=== PATIENT | female | born 1950 | race Caucasian/White ===

== ENCOUNTER 2016-10-14 17:11 | Inpatient (IN) | payer OTHER ==
[2016-10-14 17:38] VITALS: BMI 22.8
[2016-10-14 17:41] VITALS: RESP 20
--- NOTE | 2016-10-14 18:21 | CP.PCM.HP ---
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 Son and daughter in law at bedside. Patient initially presented with L sided weakness and L sided facial droop which have since resolved. Patient states she feels she has returned back to baseline. Patient able to answer questions well, gives her own history but easily gets confused. She is able to recall having a B.A. 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 However, patient was unable to recall she was transferred from one facility to another. She is easily redirected. Vitals are stable, no acute distress. Denies recent illness, fever, chills, chest pain, dyspnea, abdominal pain, dysuria, hematuria, hematochezia, melena, n/v/c/d. ROS: per HPI, 12 systems reviewed and negative PMD: Dr. Stephens PMH: HTN, DM, CVA 6 months ago, dementia (2 years), urinary incontinence PSH: denies FH: denies SH: denies tobacco, ETOH, IVDU Meds: as below Allergies: NKDA Vitals: reviewed and currently stable Exam: GEN: WDWN, alert, cooperative HEENT: NCAT, PERRL, EOMI NECK: supple, no JVD, no lymphadenopathy CARDIAC: +S1S2 RRR LUNG: CTAB No WRR ABD: SOFT NT ND BSX4 NO MASSES NO HSM EXT: +pedal pulses, equal strength NEURO: AAOx3 SKIN warm, dry PSYCH normal mood, normal affect Labs: pending Rads: CT head: no active disease or hemorrhage, no evidence CVA MRI Brain: extensive periventricular white matter signal abnormality, most likely secondary to chronic microvascular ischemic disease MRA Head: no evidence occlusion, definite significant stenosis or saccular aneurysm LE dopplers, neg for DVT Prior carotid doppler 20-29% proximal ICA stenosis Active Medications: Allergies Bar of Soap Adverse Reaction (Uncoded 10/14/16 17:34) RASH Height & Weight Height 5 ft 5 in Weight 137 lb Start Date/Time Active Medications 10/14/16 22:00 Insulin Detemir [Levemir] 10 unit SC HS 10/15/16 09:00 Aspirin [Ecotrin] 81 mg PO DAILY Atenolol/Chlorthalidone [Atenolol-Chlorthalidone 50-25] 1 tab PO DAILY Clopidogrel [Plavix] 75 mg PO DAILY Enoxaparin [Lovenox] 40 mg SC DAILY GlipiZIDE [Glucotrol] 10 mg PO BID Iron Polysaccharide [Ferrex-150] 150 mg PO DAILY Losartan [Cozaar] 50 mg PO DAILY MetFORMIN [glucOPHAGE] 1,000 mg PO BID Pantoprazole [Protonix EC Tab] 40 mg PO DAILY cefTRIAXone IV 1 gm in Dextros [Rocephin IV 1 gm Duplex] 1 gm IVPB DAILY 10/15/16 17:00 Atorvastatin [Lipitor] 10 mg PO DIN Assessment and Plan: 65 year old female PMH HTN, DM, CVA (L anterior temporal lobe) 6 months ago, dementia (2 years), urinary incontinence, admitted to TCU s/p TIA and UTI. Son and daughter in law at bedside. Patient initially presented with L sided weakness and L sided facial droop which have since resolved. Patient states she feels she has returned back to baseline. Patient able to answer questions well, gives her own history but easily gets confused. She is able to recall having a B.A. 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 However, patient was unable to recall she was transferred from one facility to another. She is easily redirected. Vitals are stable, no acute distress. CT head: no active disease or hemorrhage, no evidence CVA MRI Brain: extensive periventricular white matter signal abnormality, most likely secondary to chronic microvascular ischemic disease MRA Head: no evidence occlusion, definite significant stenosis or saccular aneurysm LE dopplers, neg for DVT Prior carotid doppler 20-29% proximal ICA stenosis TIA, hx CVA (L anterior temporal lobe) 6 months ago cont ASA, PLAVIX, STATIN PT/OT Physiatry consult UTI continue Ceftriaxone 2 more day follow CBC HTN cont Cozaar, Atenolol/Chlorthalidone DM accuchecks cont metformin, levemir, glipizide DEMENTIA no meds stable INCONTINENCE patient wears adult diapers at home VTE ppx lovenox Present on Admission - Present on Admission Any Indicators Present on Admission: No Past Patient History - Infectious Disease Hx of Infectious Diseases: None - Tetanus Immunizations Tetanus Immunization: Unknown - Past Medical History & Family History Past Medical History?: Yes - Past Social History Smoking Status: Never Smoked - CARDIAC Hx Hypertension: Yes - PULMONARY Hx Chronic Obstructive Pulmonary Disease (COPD): No Hx Pneumonia: No - NEUROLOGICAL Hx Dementia: Yes - RENAL Hx Renal Failure: No - ENDOCRINE/METABOLIC Hx Diabetes Mellitus Type 1: Yes - HEMATOLOGICAL/ONCOLOGICAL Hx Cancer: No - MUSCULOSKELETAL/RHEUMATOLOGICAL Hx Falls: No - GASTROINTESTINAL Hx Gastroesophageal Reflux: No - PSYCHIATRIC Hx Substance Use: No - SURGICAL HISTORY Hx Thyroidectomy: Yes - ANESTHESIA Hx Anesthesia: No Meds Allergies/Adverse Reactions: Allergies Allergy/AdvReac Type Severity Reaction Status Date / Time Bar of Soap AdvReac RASH Uncoded 10/14/16 17:34 Results - Vital Signs Recent Vital Signs: Last Vital Signs Temp 97.9 F 10/14/16 17:40 Pulse 64 10/14/16 17:40 Resp 20 10/14/16 17:40 BP 174/86 H 10/14/16 17:40 Pulse Ox 100 10/14/16 17:40
[2016-10-14] MEDS: Insulin Detemir 100 Units/ml Inj SC SCH (21:07)
[2016-10-15 07:42] LABS: MEAN CELL VOLUME 81.8 fl (81.0-99.0); MEAN CORPUSCULAR HEMOGLOBIN 26.8 pg (27.0-31.0); MEAN CORPUSCULAR HGB CONC 32.8 g/dL (33.0-37.0); RED CELL DISTRIBUTION WIDTH 14.7 % (11.5-14.5); WHITE BLOOD COUNT 8.8 K/uL (4.8-10.8)
[2016-10-15 07:56] LABS: BLOOD UREA NITROGEN 20 mg/dl (7-17); CALCIUM 10.1 mg/dL (8.4-10.2); CARBON DIOXIDE 25 mmol/L (22-30); CHLORIDE 99 mmol/L (98-107); GFR AFRICAN-AMERICAN > 60; GLUCOSE,RANDOM 202 mg/dL (65-105); POTASSIUM 4.1 MMOL/L (3.6-5.0); SODIUM 137 mmol/l (132-148)
[2016-10-15] MEDS: Enoxaparin 40 mg Syringe SC SCH (08:36)
[2016-10-15] MEDS: Pantoprazole 40 mg EC Tab PO SCH (08:37)
[2016-10-15 08:48] LABS: PARTIAL THROMBOPLASTIN TIME 37.8 Seconds (25.6-37.1)
[2016-10-15] MEDS ORDERED: cefTRIAXone IV 1 gm in Dextros 50 ML BAG IVPB SCH (09:00)
[2016-10-15] MEDS ORDERED: cefTRIAXone 1 gm/NS 100ML IVPB SCH (09:00)
[2016-10-15] MEDS ORDERED: Patient's Own Med (Atenolol/Chlorthalidone [Atenolol-Chlorthalidone 50-25] 1 TAB) PO SCH (09:00)
--- NOTE | 2016-10-15 14:33 | CP.PCM.PN ---
Subjective - Date & Time of Evaluation Date of Evaluation: 10/15/16 Time of Evaluation: 11:00 - Subjective Subjective: Hospitalist Progress Note (Patient was seen and examined at 11:00 AM 711-1 ) 65 year old female PMH HTN, DM, CVA (L anterior temporal lobe) 6 months ago, dementia (2 years), urinary incontinence, admitted to TCU 10/14/16 s/p being diagnosed with TIA and UTI at [facility] [place]. She initially presented to [facility] [place] with L sided weakness and L sided facial droop which have since resolved. Patient states she feels she has returned back to baseline. Patient able to answer questions well, gives her own history but easily gets confused. She is able to recall having a B.A. 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 head: no active disease or hemorrhage, no evidence CVA MRI Brain: extensive periventricular white matter signal abnormality, most likely secondary to chronic microvascular ischemic disease MRA Head: no evidence occlusion, definite significant stenosis or saccular aneurysm LE dopplers, neg for DVT Prior carotid doppler 20-29% proximal ICA stenosis Currently upon FULL ROS there is NO chest pain, NO palpitations, NO SOB/Cough/ Wheezing, NO dysphagia/odynophagia, NO abdminal pain, NO n/v/d/c, NO burning pain with urination, NO headaches, NO new changes in vision/eye pain, NO new changes in hearing/ear pain/tinnitus, NO paresthesias, NO edema, (+) Some lightheadedness when participating with PT HEENT: NCA, EOMI, PERRLA, NO pharyngeal erythema/exudate, NO thyromegaly, NO cervical/supraclavicular/submandibular lymphadenopathy, Oral Mucosa and Nasal Turbinates are moist Cardio: NS1 and NS2, NO M/R/G Resp: CTA B/L, NO R/R/W GI: BSx4, Soft, NT, ND, NO HSM, NO guarding/rebound tenderness Ext: Pulses are strong and equal, NO edema, Capillary Refill is 2 seconds Neuro: CN II through XII are grossly inteact, NO faical droop, 5/5 strength with flexion and extension of B/L UE and LE against my resistance, Mini Mental Status Exam score is 12/30 (could not provide month and season, could not provide information as to exactly where she was other than being in the hospital , could only subtract by 5 from 100 down to 90 and then could not anymore, and she could not recall 3 objects house/car/watch) Assessment and Plan: 1). TIA (History of CVA involving Left Anterior Tempora Lobe) ASA 81 mg PO 1x/day Atorvastatin 10 mg PO QHS Plavix 75 mg PO 1x/day Mini Mental Status Exam today 10/15/16 showed a score of 12/30 (please see details in Neuro Exam above) Consult Neurology Dr. Mane for further recommendations PT/OT Speech Therapy 2). Questionable UTI She was diagnosed with UTI at [facility] [place]. However, Urine Culture that was done there on 10/10/16 showed contamination Repeat Urine Culture was ordered and if negative then discontinue the Ceftriaxone 1 gm IV 1x/day 3). Hx HTN Atenolol 50 mg PO 1x/day Chlorthalidone 25 mg PO 1x/day Losartan 50 mg PO 1x/day 4). Hx DM 2 Glipizide 10 mg PO 2x/day Metformin 1,000 mg PO 2x/day Levemir 10 units SC QHS 5). Hx Dementia 6). Hx Urinary Incontinence Wears adult diapers at home as per records 7). Prophylaxis Lovenox 40 mg SC 1x/day for DVT Prophylaxis Protonix 40 mg PO 1x/day for GI Prophylaxis Florastor 250 mg PO 2x/day Ferrous Sulfate 325 mg PO 1x/day Objective - Vital Signs/Intake and Output Vital Signs (last 24 hours): Temp Pulse Resp BP Pulse Ox 97.5 F L 66 20 143/83 100 10/15/16 08:10 10/15/16 08:37 10/15/16 08:10 10/15/16 08:37 10/15/16 08:10 - Medications Medications: Current Medications Aspirin (Ecotrin) 81 mg PO DAILY [facility] Last Admin: 10/15/16 08:38 Dose: 81 mg Atenolol (Tenormin) 50 mg PO DAILY [facility] Last Admin: 10/15/16 08:36 Dose: 50 mg Atorvastatin Calcium (Lipitor) 10 mg PO DIN KUNAL Chlorthalidone (Hygroton) 25 mg PO DAILY [facility] Last Admin: 10/15/16 08:36 Dose: 25 mg Clopidogrel Bisulfate (Plavix) 75 mg PO DAILY [facility] Last Admin: 10/15/16 08:38 Dose: 75 mg Enoxaparin Sodium (Lovenox) 40 mg SC DAILY [facility] PRN Reason: Protocol Last Admin: 10/15/16 08:36 Dose: 40 mg Ferrous Sulfate (Feosol) 325 mg PO DAILY [facility] Last Admin: 10/15/16 08:38 Dose: 325 mg Glipizide (Glucotrol) 10 mg PO BID [facility] Last Admin: 10/15/16 08:38 Dose: 10 mg Ceftriaxone Sodium 1 gm/ (Sodium Chloride) 100 mls @ 100 mls/hr IVPB DAILY [facility] Stop: 10/16/16 09:59 Last Admin: 10/15/16 12:11 Dose: 100 mls/hr Insulin Detemir (Levemir) 10 units SC [facility] Last Admin: 10/14/16 21:07 Dose: 10 units Losartan Potassium (Cozaar) 50 mg PO DAILY [facility] Last Admin: 10/15/16 08:37 Dose: 50 mg Metformin HCl (Glucophage) 1,000 mg PO BID [facility] Last Admin: 10/15/16 08:36 Dose: 1,000 mg Pantoprazole Sodium (Protonix Ec Tab) 40 mg PO DAILY [facility] Last Admin: 10/15/16 08:37 Dose: 40 mg - Labs Labs: 10/15/16 07:26 10/15/16 07:26 PT 12.2 Seconds (9.8-13.1) 10/15/16 07:26 INR 1.1 (0.9-1.2) 10/15/16 07:26 APTT 37.8 Seconds (25.6-37.1) H 10/15/16 07:26
[2016-10-15] MEDS: Insulin Regular 100 units/ml SC SCH ×2 (16:48→21:17)
[2016-10-15] MEDS: Saccharomyces Boulardi 250 mg Cap PO SCH (16:51)
--- NOTE | 2016-10-15 19:07 | CP.PCM.CON ---
History of Present Illness - History of Present Illness History of Present Illness: Mrs. Muro is a 65-year-old woman with a past medical history significant for a preivous left anterior temporal lobe infarct that occured two years ago, likely vascular dementia, HTN, DM, urinary incontinence. She is currently admitted for an episode described as a TIA (resolved left facial droop and left side weakness), and had a UTI. The patient seems to be more acutely confused than her baseline. Neurology was consulted to assist with the management and care. Review of Systems - Review of Systems All systems: reviewed and no additional remarkable complaints except Past Patient History - Infectious Disease Hx of Infectious Diseases: None - Tetanus Immunizations Tetanus Immunization: Unknown - Past Medical History & Family History Past Medical History?: Yes - Past Social History Smoking Status: Never Smoked - CARDIAC Hx Hypertension: Yes - PULMONARY Hx Chronic Obstructive Pulmonary Disease (COPD): No Hx Pneumonia: No - NEUROLOGICAL HX Cerebrovascular Accident: Yes - RENAL Hx Renal Failure: No - ENDOCRINE/METABOLIC Hx Diabetes Mellitus Type 2: Yes - HEMATOLOGICAL/ONCOLOGICAL Hx Cancer: No - MUSCULOSKELETAL/RHEUMATOLOGICAL Hx Falls: No - GASTROINTESTINAL Hx Gastroesophageal Reflux: No - PSYCHIATRIC Hx Substance Use: No - SURGICAL HISTORY Hx Thyroidectomy: Yes - ANESTHESIA Hx Anesthesia: No Meds Allergies/Adverse Reactions: Allergies Allergy/AdvReac Type Severity Reaction Status Date / Time Bar of Soap AdvReac RASH Uncoded 10/14/16 17:34 - Medications Medications: Current Medications Aspirin (Ecotrin) 81 mg PO DAILY [facility] Last Admin: 10/15/16 08:38 Dose: 81 mg Atenolol (Tenormin) 50 mg PO DAILY [facility] Last Admin: 10/15/16 08:36 Dose: 50 mg Atorvastatin Calcium (Lipitor) 10 mg PO DIN [facility] Last Admin: 10/15/16 16:44 Dose: 10 mg Chlorthalidone (Hygroton) 25 mg PO DAILY [facility] Last Admin: 10/15/16 08:36 Dose: 25 mg Clopidogrel Bisulfate (Plavix) 75 mg PO DAILY [facility] Last Admin: 10/15/16 08:38 Dose: 75 mg Donepezil HCl (Aricept) 5 mg PO [facility] Enoxaparin Sodium (Lovenox) 40 mg SC DAILY [facility] PRN Reason: Protocol Last Admin: 10/15/16 08:36 Dose: 40 mg Ferrous Sulfate (Feosol) 325 mg PO DAILY [facility] Last Admin: 10/15/16 08:38 Dose: 325 mg Glipizide (Glucotrol) 10 mg PO BID [facility] Last Admin: 10/15/16 16:44 Dose: 10 mg Ceftriaxone Sodium 1 gm/ (Sodium Chloride) 100 mls @ 100 mls/hr IVPB DAILY [facility] Stop: 10/16/16 09:59 Last Admin: 10/15/16 12:11 Dose: 100 mls/hr Insulin Detemir (Levemir) 10 units SC HS [facility] Last Admin: 10/14/16 21:07 Dose: 10 units Insulin Human Regular (Humulin R) 0 units SC ACHS [facility] Last Admin: 10/15/16 16:48 Dose: Not Given Losartan Potassium (Cozaar) 50 mg PO DAILY [facility] Last Admin: 10/15/16 08:37 Dose: 50 mg Memantine (Namenda) 5 mg PO DAILY [facility] Last Admin: 10/15/16 18:56 Dose: 5 mg Metformin HCl (Glucophage) 1,000 mg PO BID [facility] Last Admin: 10/15/16 16:44 Dose: 1,000 mg Pantoprazole Sodium (Protonix Ec Tab) 40 mg PO DAILY [facility] Last Admin: 10/15/16 08:37 Dose: 40 mg Saccharomyces Boulardii (Florastor) 250 mg PO BID [facility] Last Admin: 10/15/16 16:51 Dose: 250 mg Physical Exam - Constitutional Appears: Well - Head Exam Head Exam: ATRAUMATIC, NORMAL INSPECTION, NORMOCEPHALIC - Eye Exam Eye Exam: EOMI, Normal appearance, PERRL - ENT Exam ENT Exam: Mucous Membranes Moist, Normal Exam - Neck Exam Neck exam: Positive for: Normal Inspection - Respiratory Exam Respiratory Exam: Accessory Muscle Use - Cardiovascular Exam Cardiovascular Exam: REGULAR RHYTHM, +S1, +S2 - GI/Abdominal Exam GI & Abdominal Exam: Normal Bowel Sounds, Soft. absent: Tenderness - Extremities Exam Extremities exam: Positive for: normal inspection - Back Exam Back exam: NORMAL INSPECTION - Neurological Exam Neurological exam: CN II-XII Intact Additional comments: Awake, alert. Oriented to place and year, but does not know her age. She recalls 1/3 words. Can spell WORLD frontward, but not backward, could not complete subtraction task. Scored 13 on mini-mental exam. CN 2-12 were intact, strength on right side was slightly weaker than left, reflexes were brisk on the right with upgoing plantar response. Sensation was intact to LT/P/T throughout. Gait was wide-based and shuffling. Romberg was normal. Results - Vital Signs Recent Vital Signs: Last Vital Signs Temp 97.5 F L 10/15/16 16:38 Pulse 69 10/15/16 16:38 Resp 20 10/15/16 16:38 BP 138/95 H 10/15/16 16:38 Pulse Ox 100 10/15/16 16:38 - Labs Result Diagrams: 10/15/16 07:26 10/15/16 07:26 Labs: Laboratory Results - last 24 hr 10/14/16 10/15/16 10/15/16 20:04 06:04 07:26 WBC 8.8 RBC 4.65 Hgb 12.5 Hct 38.0 MCV 81.8 MCH 26.8 L MCHC 32.8 L RDW 14.7 H Plt Count 253 PT INR APTT Sodium Potassium Chloride Carbon Dioxide Anion Gap BUN Creatinine Est GFR ( Amer) Est GFR (Non-Af Amer) POC Glucose (mg/dL) 245 H 207 H Random Glucose Calcium Troponin I 10/15/16 10/15/16 10/15/16 07:26 07:26 10:44 WBC RBC Hgb Hct MCV MCH MCHC RDW Plt Count PT 12.2 INR 1.1 APTT 37.8 H Sodium 137 Potassium 4.1 Chloride 99 Carbon Dioxide 25 Anion Gap 17 BUN 20 H Creatinine 0.7 Est GFR ( Amer) > 60 Est GFR (Non-Af Amer) > 60 POC Glucose (mg/dL) 372 H Random Glucose 202 H Calcium 10.1 Troponin I 10/15/16 10/15/16 13:25 16:48 WBC RBC Hgb Hct MCV MCH MCHC RDW Plt Count PT INR APTT Sodium Potassium Chloride Carbon Dioxide Anion Gap BUN Creatinine Est GFR ( Amer) Est GFR (Non-Af Amer) POC Glucose (mg/dL) 126 H Random Glucose Calcium Troponin I < 0.0120 Assessment & Plan (1) Altered mental status Assessment and Plan: This could be due to acute worsening of baseline dementia as a result of toxic- encephalopathy in the presence of a UTI. The patient has a history of vascular dementia and is not on any medications for it. I recommend continuing aspirin, plavix, losartan and managing DM, HTN. Furthermore, I recommend adding Aricept at 5 mg QHS and Namenda at 5 mg daily. She will need outpatient neurology follow up. Thank you for this consultation. Status: Acute
[2016-10-15] MEDS: Insulin Detemir 100 Units/ml Inj SC SCH (21:23)
[2016-10-16] MEDS: Insulin Regular 100 units/ml SC SCH ×4 (06:39→21:07)
[2016-10-16] MEDS: Saccharomyces Boulardi 250 mg Cap PO SCH ×2 (08:39→17:22)
[2016-10-16] MEDS: Pantoprazole 40 mg EC Tab PO SCH (08:40)
[2016-10-16] MEDS: Enoxaparin 40 mg Syringe SC SCH (08:40)
--- NOTE | 2016-10-16 14:29 | CARD ---
APPROVED REPORT EKG Measurement Heart [id number] <Conclusion> Normal sinus rhythm Left ventricular hypertrophy with repolarization abnormality Inferior infarct, age undetermined Abnormal ECG
[2016-10-16] MEDS ORDERED: cefTRIAXone 1 gm/NS 100ML IVPB SCH (17:00)
[2016-10-16] MEDS: Insulin Detemir 100 Units/ml Inj SC SCH (21:07)
[2016-10-17] MEDS: Insulin Regular 100 units/ml SC SCH ×4 (06:47→21:24)
[2016-10-17] MEDS: Saccharomyces Boulardi 250 mg Cap PO SCH ×2 (09:23→17:03)
[2016-10-17] MEDS: Pantoprazole 40 mg EC Tab PO SCH (09:26)
[2016-10-17] MEDS: Enoxaparin 40 mg Syringe SC SCH (09:27)
--- NOTE | 2016-10-17 11:28 | CP.PCM.PCO ---
Physician Communication Note - Physician Communication Note Physician Communication Note: Please see above
[2016-10-17] MEDS ORDERED: Sodium Chloride 0.9% 100 ML ONE (13:20)
[2016-10-17] MEDS ORDERED: Iohexol 300 100 ML IJ ONE (13:20)
--- NOTE | 2016-10-17 14:47 | CT ---
PROCEDURE: CT Abdomen and Pelvis with contrast HISTORY: RLQ PAIN N V COMPARISON: None. TECHNIQUE: Contrast dose: 90 cc Omnipaque 300 Radiation dose: Total exam DLP = 1029.56 mGy-cm. This CT exam was performed using one or more of the following dose reduction techniques: Automated exposure control, adjustment of the mA and/or kV according to patient size, and/or use of iterative reconstruction technique. FINDINGS: LOWER THORAX: Subsegmental/dependent atelectasis. Small hiatal hernia. No LIVER: Hepatic steatosis. 1.7 cm simple cyst posterior segment right hepatic lobe. She. No intrahepatic bile duct dilatation or perihepatic ascites. GALLBLADDER AND BILE DUCTS: Unremarkable. PANCREAS: Unremarkable. No gross lesion or ductal dilatation. SPLEEN: Unremarkable. ADRENALS: Unremarkable. No mass. KIDNEYS AND URETERS: Unremarkable. No hydronephrosis. No solid mass. VASCULATURE: Unremarkable. No aortic aneurysm. BOWEL: Unremarkable. No obstruction. No gross mural thickening. Diverticulosis without an acute inflammatory component or other associated pathologic process. APPENDIX: Normal appendix. PERITONEUM: Unremarkable. No free fluid. No free air. LYMPH NODES: Unremarkable. No enlarged lymph nodes. BLADDER: Unremarkable. REPRODUCTIVE: Unremarkable. BONES: No acute fracture. OTHER FINDINGS: None. IMPRESSION: No significant or acute findings to account for/ related to the clinical presentation. Additional benign and/or incidental findings described above.
[2016-10-17 15:12] LABS: HEMATOCRIT 38.5 % (34.0-47.0); LYMPH # 1.2 K/uL (1.0-4.3); LYMPH % 7.5 % (20.0-40.0); MEAN CELL VOLUME 81.8 fl (81.0-99.0); MEAN CORPUSCULAR HEMOGLOBIN 26.5 pg (27.0-31.0); MEAN CORPUSCULAR HGB CONC 32.4 g/dL (33.0-37.0); MEAN PLATELET VOLUME 9.1 fl (7.2-11.7); MONO # 0.4 K/uL (0.0-0.8); MONO % 2.6 % (0.0-10.0); NEUT # 14.5 K/uL (1.8-7.0); NEUT % 89.9 % (50.0-75.0); NRBC % 0.1 % (0.0-0.0); PLATELET COUNT 243 K/uL (130-400); RED CELL DISTRIBUTION WIDTH 14.7 % (11.5-14.5); WHITE BLOOD COUNT 16.2 K/uL (4.8-10.8)
[2016-10-17 15:22] LABS: ALB/GLOB RATIO 1.1 (1.0-2.1); ALKALINE PHOSPHATASE 62 U/L (38-126); ALT/SGPT 19 U/L (9-52); AST/SGOT 16 U/L (14-36); BILIRUBIN,TOTAL 1.1 mg/dl (0.2-1.3); BLOOD UREA NITROGEN 28 mg/dl (7-17); CARBON DIOXIDE 24 mmol/L (22-30); CHLORIDE 91 mmol/L (98-107); GFR AFRICAN-AMERICAN > 60; GLUCOSE,RANDOM 246 mg/dL (65-105); LIPASE 62 U/L (23-300); POTASSIUM 4.2 MMOL/L (3.6-5.0); SODIUM 131 mmol/l (132-148); TOTAL PROTEIN 7.8 G/DL (6.3-8.2)
[2016-10-17 15:39] LABS: T4 9.85 ug/dl (5.5-11.0)
[2016-10-17 15:45] LABS: NEUTROPHIL 83 % (42-75); TOTAL CELLS COUNTED 100
[2016-10-17 15:52] LABS: THYROID STIMULATING HORMONE 0.32 mIU/ML (0.46-4.68)
[2016-10-17] MEDS: Sodium Chloride 0.9% 1,000 ML IV SCH (17:02)
--- NOTE | 2016-10-17 17:35 | CP.PCM.PCO ---
Physician Communication Note - Physician Communication Note Physician Communication Note: Please see above
[2016-10-17] MEDS: Insulin Detemir 100 Units/ml Inj SC SCH (21:20)
[2016-10-18 08:09] LABS: BASO % 0.4 % (0.0-2.0); EOS # 0.1 K/uL (0.0-0.7); HEMATOCRIT 33.2 % (34.0-47.0); LYMPH # 1.8 K/uL (1.0-4.3); MEAN CELL VOLUME 81.6 fl (81.0-99.0); MEAN CORPUSCULAR HEMOGLOBIN 26.3 pg (27.0-31.0); MEAN CORPUSCULAR HGB CONC 32.2 g/dL (33.0-37.0); MEAN PLATELET VOLUME 9.3 fl (7.2-11.7); MONO # 0.5 K/uL (0.0-0.8); MONO % 4.9 % (0.0-10.0); NEUT # 7.9 K/uL (1.8-7.0); NEUT % 76.7 % (50.0-75.0); NRBC % 0.1 % (0.0-0.0); RED CELL DISTRIBUTION WIDTH 14.5 % (11.5-14.5); WHITE BLOOD COUNT 10.3 K/uL (4.8-10.8)
[2016-10-18 08:10] LABS: BLOOD UREA NITROGEN 27 mg/dl (7-17); CALCIUM 9.2 mg/dL (8.4-10.2); CARBON DIOXIDE 24 mmol/L (22-30); CHLORIDE 97 mmol/L (98-107); GFR AFRICAN-AMERICAN > 60; GLUCOSE,RANDOM 115 mg/dL (65-105); POTASSIUM 3.7 MMOL/L (3.6-5.0); SODIUM 133 mmol/l (132-148)
[2016-10-18] MEDS: Insulin Regular 100 units/ml SC SCH ×4 (08:19→23:14)
[2016-10-18] MEDS: Sodium Chloride 0.9% 1,000 ML IV SCH (08:19)
[2016-10-18] MEDS: Enoxaparin 40 mg Syringe SC SCH (08:37)
[2016-10-18] MEDS: Saccharomyces Boulardi 250 mg Cap PO SCH ×2 (08:37→17:05)
[2016-10-18] MEDS: Pantoprazole 40 mg EC Tab PO SCH (08:38)
--- NOTE | 2016-10-18 11:21 | CP.PCM.PCO ---
Physician Communication Note - Physician Communication Note Physician Communication Note: Please see above
[2016-10-18] MEDS: Insulin Detemir 100 Units/ml Inj SC SCH (23:15)
[2016-10-19] MEDS: Insulin Regular 100 units/ml SC SCH ×4 (06:54→21:05)
[2016-10-19] MEDS: Saccharomyces Boulardi 250 mg Cap PO SCH ×2 (08:35→16:55)
[2016-10-19] MEDS: Pantoprazole 40 mg EC Tab PO SCH (08:36)
[2016-10-19] MEDS: Enoxaparin 40 mg Syringe SC SCH (08:36)
[2016-10-19] MEDS: Insulin Detemir 100 Units/ml Inj SC SCH (21:05)
[2016-10-20] MEDS: Insulin Regular 100 units/ml SC SCH ×4 (06:47→21:24)
[2016-10-20] MEDS: Enoxaparin 40 mg Syringe SC SCH (09:07)
[2016-10-20] MEDS: Pantoprazole 40 mg EC Tab PO SCH (09:08)
[2016-10-20] MEDS: Saccharomyces Boulardi 250 mg Cap PO SCH ×2 (09:10→16:30)
--- NOTE | 2016-10-20 11:05 | CP.PCM.PN ---
Subjective - Date & Time of Evaluation Date of Evaluation: 10/20/16 Time of Evaluation: 11:04 - Subjective Subjective: patient tolerating pt well feeling improved no chest pain, dyspnea, calf tenderness vitals are stable no acute distress Objective - Vital Signs/Intake and Output Vital Signs (last 24 hours): Temp Pulse Resp BP Pulse Ox 98.1 F 68 20 128/75 98 10/20/16 07:38 10/20/16 09:14 10/20/16 07:38 10/20/16 09:14 10/20/16 07:38 GEN: WDWN, alert, cooperative HEENT: NCAT, PERRL, EOMI NECK: supple, no JVD, no lymphadenopathy CARDIAC: +S1S2 RRR LUNG: CTAB No WRR ABD: SOFT NT ND BSX4 NO MASSES NO HSM EXT: +pedal pulses, equal strength NEURO: AAOx3 SKIN warm, dry PSYCH normal mood, normal affect - Medications Medications: Current Medications Acetaminophen (Tylenol 325mg Tab) 650 mg PO Q6 PRN PRN Reason: Pain, Mild (1-3) Last Admin: 10/19/16 21:04 Dose: 650 mg Acetaminophen (Tylenol 325mg Tab) 650 mg PO Q6 PRN PRN Reason: Temperature Aspirin (Ecotrin) 81 mg PO DAILY [facility] Last Admin: 10/20/16 09:08 Dose: 81 mg Atenolol (Tenormin) 50 mg PO DAILY [facility] Last Admin: 10/20/16 09:10 Dose: 50 mg Atorvastatin Calcium (Lipitor) 10 mg PO DIN [facility] Last Admin: 10/19/16 16:55 Dose: 10 mg Chlorthalidone (Hygroton) 25 mg PO DAILY [facility] Last Admin: 10/20/16 09:08 Dose: 25 mg Clopidogrel Bisulfate (Plavix) 75 mg PO DAILY [facility] Last Admin: 10/20/16 09:11 Dose: 75 mg Donepezil HCl (Aricept) 5 mg PO HS [facility] Last Admin: 10/19/16 21:04 Dose: 5 mg Enoxaparin Sodium (Lovenox) 40 mg SC DAILY [facility] PRN Reason: Protocol Last Admin: 10/20/16 09:07 Dose: 40 mg Ferrous Sulfate (Feosol) 325 mg PO DAILY [facility] Last Admin: 10/20/16 09:08 Dose: 325 mg Glipizide (Glucotrol) 10 mg PO BID [facility] Last Admin: 10/20/16 09:08 Dose: 10 mg Hydrocortisone (Hydrocortisone Lotion 2.5%) 1 applic TP BID [facility] Last Admin: 10/20/16 09:15 Dose: 1 applic Insulin Detemir (Levemir) 10 units SC HS [facility] Last Admin: 10/19/16 21:05 Dose: Not Given Insulin Human Regular (Humulin R) 0 units SC ACHS [facility] Last Admin: 10/20/16 06:47 Dose: Not Given Losartan Potassium (Cozaar) 50 mg PO DAILY [facility] Last Admin: 10/20/16 09:14 Dose: 50 mg Metformin HCl (Glucophage) 1,000 mg PO BID [facility] Last Admin: 10/20/16 09:09 Dose: 1,000 mg Pantoprazole Sodium (Protonix Ec Tab) 40 mg PO DAILY [facility] Last Admin: 10/20/16 09:08 Dose: 40 mg Saccharomyces Boulardii (Florastor) 250 mg PO BID [facility] Last Admin: 10/20/16 09:10 Dose: 250 mg - Labs Labs: 10/18/16 06:15 10/18/16 06:15 PT 12.2 Seconds (9.8-13.1) 10/15/16 07:26 INR 1.1 (0.9-1.2) 10/15/16 07:26 APTT 37.8 Seconds (25.6-37.1) H 10/15/16 07:26 Assessment and Plan - Assessment and Plan (Free Text) Plan: 65 year old female PMH HTN, DM, CVA (L anterior temporal lobe) 6 months ago, dementia (2 years), urinary incontinence, admitted to TCU 10/14/16 s/p being diagnosed with TIA and UTI at [facility]. She initially presented to [facility] with L sided weakness and L sided facial droop which have since resolved. Patient states she feels she has returned back to baseline. Patient able to answer questions well, gives her own history but easily gets confused. She is able to recall having a B.A. 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 head: no active disease or hemorrhage, no evidence CVA MRI Brain: extensive periventricular white matter signal abnormality, most likely secondary to chronic microvascular ischemic disease MRA Head: no evidence occlusion, definite significant stenosis or saccular aneurysm LE dopplers, neg for DVT Prior carotid doppler 20-29% proximal ICA stenosis 1). TIA (History of CVA involving Left Anterior Tempora Lobe) ASA 81 mg PO 1x/day Atorvastatin 10 mg PO QHS Plavix 75 mg PO 1x/day MMSE 10/15/16 - 05/08 per hospitalist team Consult Neurology Dr. Mane for further recommendations PT/OT Speech Therapy 2). Questionable UTI She was diagnosed with UTI at [facility]. However, Urine Culture that was done there on 10/10/16 showed contamination Repeat Urine Culture was ordered and if negative then discontinue the Ceftriaxone 1 gm IV 1x/day 3). Hx HTN Atenolol 50 mg PO 1x/day Chlorthalidone 25 mg PO 1x/day Losartan 50 mg PO 1x/day 4). Hx DM 2 Glipizide 10 mg PO 2x/day Metformin 1,000 mg PO 2x/day Levemir 10 units SC QHS 5). Hx Dementia 6). Hx Urinary Incontinence Wears adult diapers at home as per records 7). Prophylaxis Lovenox 40 mg SC 1x/day for DVT Prophylaxis Protonix 40 mg PO 1x/day for GI Prophylaxis Florastor 250 mg PO 2x/day Ferrous Sulfate 325 mg PO 1x/day
[2016-10-20] MEDS: Insulin Detemir 100 Units/ml Inj SC SCH (21:24)
[2016-10-21] MEDS: Insulin Regular 100 units/ml SC SCH ×4 (06:36→21:05)
[2016-10-21] MEDS: Pantoprazole 40 mg EC Tab PO SCH (08:51)
[2016-10-21] MEDS: Saccharomyces Boulardi 250 mg Cap PO SCH ×2 (08:51→16:42)
[2016-10-21] MEDS: Enoxaparin 40 mg Syringe SC SCH (08:55)
[2016-10-21] MEDS: Insulin Detemir 100 Units/ml Inj SC SCH (21:06)
[2016-10-22] MEDS: Insulin Regular 100 units/ml SC SCH ×2 (06:31→12:30)
[2016-10-22 07:36] VITALS: O2SAT 100
[2016-10-22] MEDS: Pantoprazole 40 mg EC Tab PO SCH (08:36)
[2016-10-22] MEDS: Saccharomyces Boulardi 250 mg Cap PO SCH (08:37)
[2016-10-22] MEDS: Enoxaparin 40 mg Syringe SC SCH (08:38)
--- NOTE | 2016-10-22 10:17 | CP.PCM.DIS ---
Provider - Provider Date of Admission: 10/14/16 17:38 Attending physician: Zoila Hogan DO Primary care physician: Stanford Stephens MD Time Spent in preparation of Discharge (in minutes): 30 Diagnosis - Discharge Diagnosis (1) TIA (transient ischemic attack) Status: Suspected Priority: High Comment: continue ASA, Plavix and Lipitor. control BP (2) UTI (urinary tract infection) Status: Resolved Priority: Low Comment: completed course of IV Rocephin (3) HTN (hypertension) Status: Chronic Priority: Low Comment: BP stable. continue Atenolol/Chlorthalidone and Losartan (4) DM2 (diabetes mellitus, type 2) Status: Chronic Comment: BS relatively controlled. continue Metformin and Glucotrol (5) Dementia Status: Chronic Comment: continue Aricept Hospital Course - Lab Results Lab Results: Micro Results 10/17/16 18:03 Blood-Venous Blood Culture - Preliminary NO GROWTH AFTER 4 DAYS 10/17/16 18:03 Blood-Venous Blood Culture - Preliminary NO GROWTH AFTER 4 DAYS 10/15/16 Unknown Urine,Catheterized Urine Culture - Final No Growth (<1,000 CFU/ML) Most Recent Lab Values WBC 10.3 K/uL (4.8-10.8) 10/18/16 06:15 RBC 4.06 Mil/uL (3.80-5.20) 10/18/16 06:15 Hgb 10.7 g/dL (12.0-16.0) L 10/18/16 06:15 Hct 33.2 % (34.0-47.0) L 10/18/16 06:15 MCV 81.6 fl (81.0-99.0) 10/18/16 06:15 MCH 26.3 pg (27.0-31.0) L 10/18/16 06:15 MCHC 32.2 g/dL (33.0-37.0) L 10/18/16 06:15 RDW 14.5 % (11.5-14.5) 10/18/16 06:15 Plt Count 226 K/uL (130-400) 10/18/16 06:15 MPV 9.3 fl (7.2-11.7) 10/18/16 06:15 Neut % (Auto) 76.7 % (50.0-75.0) H 10/18/16 06:15 Lymph % (Auto) 17.0 % (20.0-40.0) L 10/18/16 06:15 Williamson % (Auto) 4.9 % (0.0-10.0) 10/18/16 06:15 Eos % (Auto) 1.0 % (0.0-4.0) 10/18/16 06:15 Baso % (Auto) 0.4 % (0.0-2.0) 10/18/16 06:15 Neut # 7.9 K/uL (1.8-7.0) H 10/18/16 06:15 Lymph # 1.8 K/uL (1.0-4.3) 10/18/16 06:15 Williamson # 0.5 K/uL (0.0-0.8) 10/18/16 06:15 Eos # 0.1 K/uL (0.0-0.7) 10/18/16 06:15 Baso # 0.0 K/uL (0.0-0.2) 10/18/16 06:15 Neutrophils % (Manual) 83 % (42-75) H 10/17/16 15:00 Band Neutrophils % 3 % (0-2) H 10/17/16 15:00 Lymphocytes % (Manual) 13 % (20-50) L 10/17/16 15:00 Monocytes % (Manual) 1 % (0-10) 10/17/16 15:00 Platelet Estimate Normal (NORMAL) 10/17/16 15:00 Anisocytosis (manual) Slight 10/17/16 15:00 PT 12.2 Seconds (9.8-13.1) 10/15/16 07:26 INR 1.1 (0.9-1.2) 10/15/16 07:26 APTT 37.8 Seconds (25.6-37.1) H 10/15/16 07:26 Sodium 133 mmol/l (132-148) 10/18/16 06:15 Potassium 3.7 MMOL/L (3.6-5.0) 10/18/16 06:15 Chloride 97 mmol/L (98-107) L 10/18/16 06:15 Carbon Dioxide 24 mmol/L (22-30) 10/18/16 06:15 Anion Gap 16 (10-20) 10/18/16 06:15 BUN 27 mg/dl (7-17) H 10/18/16 06:15 Creatinine 0.9 mg/dL (0.7-1.2) 10/18/16 06:15 Est GFR ( Amer) > 60 10/18/16 06:15 Est GFR (Non-Af Amer) > 60 10/18/16 06:15 POC Glucose (mg/dL) 149 mg/dL (65-110) H 10/22/16 08:25 Random Glucose 115 mg/dL (65-105) H 10/18/16 06:15 Calcium 9.2 mg/dL (8.4-10.2) 10/18/16 06:15 Total Bilirubin 1.1 mg/dl (0.2-1.3) 10/17/16 15:00 AST 16 U/L (14-36) 10/17/16 15:00 ALT 19 U/L (9-52) 10/17/16 15:00 Alkaline Phosphatase 62 U/L (38-126) 10/17/16 15:00 Troponin I < 0.0120 ng/mL (0.00-0.120) 10/15/16 13:25 Total Protein 7.8 G/DL (6.3-8.2) 10/17/16 15:00 Albumin 4.2 g/dL (3.5-5.0) 10/17/16 15:00 Globulin 3.7 gm/dL (2.2-3.9) 10/17/16 15:00 Albumin/Globulin Ratio 1.1 (1.0-2.1) 10/17/16 15:00 Lipase 62 U/L (23-300) 10/17/16 15:00 Thyroxine (T4) 9.85 ug/dl (5.5-11.0) 10/17/16 15:00 TSH 3rd Generation 0.32 mIU/ML (0.46-4.68) L 10/17/16 15:00 - Hospital Course Hospital Course: 65 yo female with history of HTN, DM2, CVA, Dementia and urinary incontinece admitted initially in [facility] [place] on 10/11/2016 because of left facial droop and left sided weakness which resolved spontaneously. Patient however remained with gait instability. She also was found to have UTI and was managed with IV Rocephin. She was transferred to TCU on 10/14/2016 for PT/OT and continuation of IV antibiotics. Pt did well and now ready for discharge. Discharge Exam - Head Exam Head Exam: ATRAUMATIC, NORMAL INSPECTION, NORMOCEPHALIC - Eye Exam Eye Exam: absent: Scleral icterus - ENT Exam ENT Exam: Mucous Membranes Moist - Respiratory Exam Respiratory Exam: NORMAL BREATHING PATTERN. absent: Wheezes, Respiratory Distress - Cardiovascular Exam Cardiovascular Exam: REGULAR RHYTHM, +S1, +S2 - GI/Abdominal Exam GI & Abdominal Exam: Soft. absent: Tenderness - Rectal Exam Rectal Exam: Deferred - Neurological Exam Neurological exam: Alert - Psychiatric Exam Psychiatric exam: Normal Affect - Skin Skin Exam: Dry, Intact Discharge Plan - Discharge Medications Prescriptions: Atorvastatin [Lipitor] 10 mg PO DIN #30 tab Clopidogrel [Plavix] 75 mg PO DAILY #30 tab Donepezil [Aricept] 5 mg PO HS #30 tab GlipiZIDE [Glucotrol] 10 mg PO BID #60 tab Losartan [Cozaar] 50 mg PO DAILY #30 tab MetFORMIN [glucoPHAGE] 1,000 mg PO BID #60 tab Pantoprazole [Protonix EC Tab] 40 mg PO DAILY #15 ect - Follow Up Plan Condition: GOOD Disposition: HOME/ ROUTINE Referrals: Stanford Stephens MD [Primary Care Provider] -
[2016-10-22 15:43] VITALS: BP 126/66; PULSE 70; TEMP 97.7
== END 2016-10-22 16:35 | disposition home health service (06) | DRG 69 ==
LOC: H.TCU 17:38
PROVIDERS: ADMIT Student in an Organized Health Care Education/Training Program; ATTEND Student in an Organized Health Care Education/Training Program
PROC: F07Z9FZ Gait Training/Functional Ambulation Treatment using Assistive, Adaptive, Supportive or Protective Equipment (ICD-10-PCS; principal; 2016-10-15)
PROC: F07M6FZ Therapeutic Exercise Treatment of Musculoskeletal System - Whole Body using Assistive, Adaptive, Supportive or Protective Equipment (ICD-10-PCS; 2016-10-15)
PROC: F08Z4FZ Home Management Treatment using Assistive, Adaptive, Supportive or Protective Equipment (ICD-10-PCS; 2016-10-15)
DX: G45.9 Transient cerebral ischemic attack, unspecified (principal); F01.50 Vascular dementia, unspecified severity, without behavioral disturbance, psychotic disturbance, mood disturbance, and anxiety; I10 Essential (primary) hypertension; N39.0 Urinary tract infection, site not specified; E11.9 Type 2 diabetes mellitus without complications; R32 Unspecified urinary incontinence; Z79.82 Long term (current) use of aspirin; Z82.49 Family history of ischemic heart disease and other diseases of the circulatory system; Z83.3 Family history of diabetes mellitus; Z86.73 Personal history of transient ischemic attack (TIA), and cerebral infarction without residual deficits; Z79.84 Long term (current) use of oral hypoglycemic drugs; R26.9 Unspecified abnormalities of gait and mobility